=== PATIENT | male | born 1940 | race Caucasian/White ===

== ENCOUNTER 2025-07-27 14:52 | Emergency (ER) | payer MEDICARE ==
[2025-07-27] MEDS ORDERED: Boostrix 0.5 ML (Tdap) VIAL (>/=7 yrs of age) ONE (15:10)
[2025-07-27] MEDS ORDERED: Bacitracin 1 PK ONE (15:10)
== END 2025-07-27 15:33 | disposition home or self-care (01) ==
LOC: MADERS 14:52
DX: S51.812A Laceration without foreign body of left forearm, initial encounter (principal); E11.9 Type 2 diabetes mellitus without complications; Z23 Encounter for immunization; Z79.84 Long term (current) use of oral hypoglycemic drugs; Z79.899 Other long term (current) drug therapy; W19.XXXA Unspecified fall, initial encounter; Y92.009 Unspecified place in unspecified non-institutional (private) residence as the place of occurrence of the external cause
CPT/HCPCS: 90471; 90715